=== PATIENT | female | born 1975 | race Caucasian/White ===

== ENCOUNTER 2016-11-21 11:49 | Inpatient (IN) | payer OTHER ==
[2016-11-20 11:42] VITALS: BMI 33.1
[2016-11-21] VITALS (21 sets, daily range): BP systolic 100–128; BP diastolic 44–71; PULSE 60–82; RESP 11–19; Ht 165.1 cm; Wt 98.7 kg
[~2016-11-21] VITALS: Ht 165.1 cm; Wt 98.7 kg
[~2016-11-21 11:49] MED LIST: LIDOCAINE 2% (SDV) 5 ML INJ ONE
[2016-11-21] MEDS ORDERED: CIPR500T4 PO (12:32)
[2016-11-21] MEDS ORDERED: REMI IV (12:32)
[2016-11-21] MEDS ORDERED: LYRI100 PO (12:33)
[2016-11-21] MEDS ORDERED: HYDR8TAB25 PO (12:35)
[2016-11-21] MEDS ORDERED: FENTAnyl 50 MCG/ML VIAL ONE (17:01)
[2016-11-21] MEDS ORDERED: MIDAZOLAM 1 MG/ML 2 ML INJ ONE ×2 (17:01→17:30)
[2016-11-21] MEDS ORDERED: ROPIVACAINE 0.5 % 30 ML VIAL ONE (17:02)
--- NOTE | 2016-11-21 17:10 | HPN ---
Date/Time of Note Date/Time of Note DATE: 11/21/16 TIME: 17:09 Interval H&P Admission Note Pt. seen H&P reviewed: No system changes DARLIN SCHAFER MD Nov 21, 2016 17:10
[2016-11-21] MEDS ORDERED: DEXAMETHASONE 4 MG/ML 1 ML INJ ONE (17:41)
[2016-11-21] MEDS ORDERED: HEPARIN 1000 UNITS/ML 10 ML INJ ONE (17:45)
[2016-11-21] MEDS ORDERED: POLYMYXIN/BACITRACIN 1L IRRIG ONE (17:47)
[2016-11-21] MEDS ORDERED: LIDOCAINE 2% (SDV) 5 ML INJ ONE (18:08)
[2016-11-21] MEDS ORDERED: SUCCINYLCHOLINE CHLORIDE 100 MG/5 ML SYG IV ONE (18:08)
[2016-11-21] MEDS ORDERED: SUGAMMADEX SODIUM 200 MG/2 ML VIAL IV ONE (18:08)
[2016-11-21] MEDS ORDERED: PROPOFOL 40 ML ONE (18:08)
[2016-11-21] MEDS ORDERED: ROCURONIUM 50 MG INJ ONE (18:08)
[2016-11-21] MEDS ORDERED: CEFAZOLIN 1 GM INJ ONE (18:08)
[2016-11-21] MEDS ORDERED: BUPIVACAINE 0.5% (SDV) 30 ML INJ ONE (18:14)
[2016-11-21] MEDS ORDERED: THROMBIN(HUM PLAS)/FIBRINOG/CA 5 ML VIAL TOP ONE (18:38)
[2016-11-21] MEDS ORDERED: BACITRACIN/POLYMYXIN 0.9 GM OINT TOP ONE (22:21)
[2016-11-21] MEDS ORDERED: ACETAMINOPHEN 1000MG/100ML IV 100 ML ONE (22:33)
[2016-11-21] MEDS ORDERED: HYDROmorphONE (0.2 MG/ML) 10ML SYG IV ONE (22:38)
--- NOTE | 2016-11-21 22:53 | OPR ---
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 Left ankle extensive synovitis Operation/Procedure Performed Left ankle Brostrom-Banuelos lateral ankle ligament reconstruction Left ankle arthroscopy with extensive debridement Left ankle arthroscopy with microfracture of medial talar dome OCD (10 x 4 x 4mm ) Left ankle arthroscopy with application of allograft mixed with Bone marrow aspirate concentrate Aspiration of bone marrow from left iliac crest Surgeon Iftikhar Schafer MD Production Stage Manager none Anesthesia Type: general, other (popliteal and adductor block) Anesthesiologist: RUI TELLO Tourniquet Time: 90 min at 250 mm Hg Estimated Blood Loss: minimal Transfusion none Specimen none Grafts/Implants Arthrex Biocartilage mixed with BMAC Arthrex Internal Brace Tubes/Drains none Complications none Pt Condition Post Procedure: stable Disposition: PACU Indications Patient is a 41-year-old female who sustained multiple ankle sprains over the past several years with increasing ankle instability. Patient also has had ongoing pain over the medial aspect of the ankle that was confirmed on both CT and MRI to be a large osteochondral lesion of the medial talar dome. Patient has failed physical therapy and anti-inflammatory usage. Given her failure of nonoperative modalities patient was indicated for surgical repair and reconstruction of the lateral ankle ligament complex as well as treatment of her osteochondral lesion of the medial talar dome. Risk Note: Patient was explained the risks and benefits of surgery and the patient's hoh language including not limited to infection, bleeding, injury to blood vessels, nerves, ligaments or tendons. Risks of anesthesia, deep vein thrombosis and need for reduce future surgery. Patient acknowledged these risk by signing the surgical consent form. Procedure Description The patient had the correct operative site marked in the preoperative holding area and confirmed with both patient and patient's consent. The patient was brought back in the operative theater, placed supine on the operating table and given regional block anesthesia. The patient was then given 2 g of Ancef preoperatively. Tourniquet placed on the operative extremity thigh non-sterilely. Patient was then given preoperative antibiotics. Initially the patient was prepped and draped over the right iliac crest. A timeout was taken and all parties in the room agreed it was direct patient, extremity and procedure. And using a Jamshidi needle the needle was placed into the right iliac crest just proximal to the anterior superior iliac spine and then the bone marrow aspirate was given to approximately 60 cc of bone marrow aspirate was withdrawn. The back table and it was sent to be spun in the centrifuge to get bone marrow aspirate concentrate. An incision was made from several centimeters above the fibula and carried inferior to the sinus Tarsi. This was carried down through the subcutaneous tissues and a 3-0 undyed Vicryl was used to retract the skin. Care was taken at all times to avoid injury to neurovascular structures. The extensor retinaculum was freed up, identified the peroneal tendons. The peroneal tendons and tendon sheath appeared intact. There was a noticeable tear in the superior aspect of the anterior talofibular ligament. A clamp was placed into this interval underneath the anterior talofibular ligament. Using electrosurgery cautery, the anterior talofibular was released. This left a cuff of tissue on the fibula. The calcaneofibular ligament was left intact. There is a significant anterior drawer, with the ligament released. Lateral gutter was again examined and all frayed areas were clearly debrided. the wounds were irrigated with antibiotic solution. An Internal brace was placed in the talus first in typical fashion.. Then a 2-0 PDS was placed in a pants over vest fashion to reattach to the ligament while retracting the peroneal tendons. Then a #2 FiberWire was placed in a pants over vest fashion to reattach remaining portion of the anterior talofibular ligament from posterior to anterior. Final stitch anteriorly along the anterior aspect of the lateral gutter and capsule closed with a 2-0 PDS in a pants over vest fashion. A posterior drawer was applied to the ankle and a blanket was rolled up underneath the tibia to allow gravity to reduce the ankle in neutral, dorsiflexion. The sutures were then subsequently tied in sequential fashion from posterior to anterior. The fibular aspect of the internal brace was placed in typical fashion approximately 1.2 cm from the tip of the fibula. An anterior drawer was eliminated and ankle have normal range of motion. The wounds were then irrigated again with antibiotic solution and the retinaculum was reefed and advanced proximally over vest fashion with 3-0 PDS. Wounds were irrigated thoroughly and closed with 3-0 Monocryl followed by a 4-0 Monocryl. And dressed with Steri-Strips. Excellent stability was obtained. Draping was then removed and patient was then reprepped and draped for the second part of this case. All gowns and gloves and instruments were new. The Left thigh was secured onto the thigh javed, flexed and all areas were carefully padded. The superficial peroneal nerve branch was marked out. The ankle was then prepped and draped in normal sterile fashion. A timeout was taken and all parties in the room agreed it was the correct patient, correct extremity and correct procedure. A soft tissue distraction strap was applied across the ankle and a soft tissue dissection was then placed across the ankle at approximately 30 pounds of force. Attention was then turned to the ankle joint and using a typical anterior medial , anterolateral and posterior lateral portal with care to avoid injury to the neurovascular structures. A 21 point ankle exam was completed revealing significant anterior lateral synovitis with lateral and medial gutter synovitis and scar tissue formation. There was a hemorrhagic nodule seen in the lateral gutter as well as evidence of anterior tibial osteophyte overhang. The significant amount of scar tissue was thoroughly debrided in the ankle. The distal tibial anterior overhang was excised and smoothed down with a shaver. A large medial talar osteochondral lesion was found along the medial talar dome measuring approximately 10 x 4 x 4 mm in depth. The OCD lesion was thoroughly debrided, as well as the cystic lesion was well curetted out to remove the cystic membrane. Once the membrane was thoroughly debrided. The lesion site was microfractured and drill with a trocar tip K wire and microfracture pick. Once the ankle and osteochondral lesion were dry the lesion was covered with fibrin glue. Once the fibrin glue had dried, the Arthrex biocartilage that had been mixed with bone marrow aspirate concentrate was then delivered to the osteochondral lesion site and again covered with fibrin glue. The osteochondral lesion site was firmly tamped down to form a nice talar shoulder. The ankle wounds were then thoroughly irrigated with saline. All wounds were closed with 4-0 nylon in vertical mattress fashion. Bone Marrow Aspirate concentrate using the Arthrex Franklyn system was then injected into the ankle. At the end of the procedure, the sponge and needle count was correct. Patient had the wounds then dressed with Xeroform, sponges, which were soaked in platelet poor plasma and then placed in a well-padded short leg splint with 5 ABDs 5 web rolls and 10 layers of 5 x 30 plaster in a posterior molded fashion as well as a stirrup fashion and the patient was placed into a short leg splint in neutral position. The patient tolerated the procedure well and was taken to the PACU in a stable condition. IFTIKHAR SCHAFER MD Nov 21, 2016 22:53
--- NOTE | 2016-11-21 22:53 | SIPON ---
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 Left ankle extensive synovitis Operation/Procedure Performed Left ankle Brostrom-Banuelos lateral ankle ligament reconstruction Left ankle arthroscopy with extensive debridement Left ankle arthroscopy with microfracture of medial talar dome OCD (10 x 3 x 5 mm) Left ankle arthroscopy with application of allograft mixed with Bone marrow aspirate concentrate Aspiration of bone marrow from left iliac crest Surgeon see signature line assistant infant teacher none Anesthesia: general, other (popliteal) Estimated blood loss: minimal Transfusion Required none Specimen none Grafts/Implants Arthrex Biocartilage mixed with BMAC Arthrex Internal Brace TT: 90 min at 250 mm Hg Complications none DARLIN SCHAFER MD Nov 21, 2016 22:53
[2016-11-21] MEDS ORDERED: ACETAMINOPHEN 1000MG/100ML IV 100 ML IVPB ONE (23:00)
[2016-11-21] MEDS ORDERED: OXYCODONE/ACETAMINOPHEN (5/325) TAB PO PRN (23:00)
[2016-11-21] MEDS ORDERED: MEPERIDINE 25 MG INJ IV PRN (23:00)
[2016-11-21] MEDS ORDERED: ONDANSETRON 4 MG INJ IV PRN ×2 (23:00)
[2016-11-21] MEDS ORDERED: HYDROmorphONE (0.2 MG/ML) 10ML SYG IV PRN ×3 (23:00)
[2016-11-21] MEDS ORDERED: CEFAZOLIN 1 GM INJ IV SCH (23:00)
[2016-11-21] MEDS ORDERED: FENTAnyl 50 MCG/ML VIAL IV PRN ×3 (23:00)
[2016-11-21] MEDS ORDERED: DIPHENHYDRAMINE 50 MG INJ IV PRN (23:00)
[2016-11-21] MEDS ORDERED: METOCLOPRAMIDE 10 MG INJ IV PRN (23:00)
[2016-11-21] MEDS ORDERED: PREGABALIN 100 MG CAP PO SCH (23:00)
[2016-11-21] MEDS ORDERED: DIPHENHYDRAMINE 25 MG CAP PO PRN (23:00)
[2016-11-21] MEDS ORDERED: ALBUTEROL 0.083% (NEB) 2.5 MG/3 ML AMP HHN PRN (23:00)
[2016-11-21] MEDS: HYDROmorphONE 0.2 MG/ML PCA IV SCH (23:05)
[2016-11-22] VITALS (13 sets, daily range): BP systolic 98–120; BP diastolic 52–64; PULSE 54–75; RESP 18–22
[2016-11-22] MEDS: HYDROmorphONE 1 MG/ML SYG IV PRN ×8 (00:14→14:50)
[2016-11-22] MEDS: PREGABALIN 75 MG CAP PO SCH ×3 (01:08→20:51)
[2016-11-22] MEDS: CEFAZOLIN 1 GM/50 ML (PMX) 50 ML IVPB SCH ×3 (02:53→17:55)
--- NOTE | 2016-11-22 06:19 | CONS ---
Date/Time of Note Date/Time of Note DATE: 11/22/16 TIME: 05:59 Assessment/Plan Assessment/Plan Additional Assessment/Plan ASSESSMENT 41-year-old female with a history of Crohn's disease and chronic left ankle and instability was now status post left ankle surgery. PLAN Continue pain management Check a.m. lab will continue her infliximab, as this seems to be no increased risk of infection if this immunomodulator is continued postoperatively. DVT prophylaxis per Ortho Consultation Date/Type/Reason Admit Date/Time Nov 21, 2016 at 22:51 Reason for Consultation medical mgmt Referring Provider: DARLIN SCHAFER MD Hx of Present Illness This is a 41-year-old female with a history of Crohn's disease and chronic lateral ankle instability, 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 She was brought to the hospital for orthopedic surgery. She is now status post Left lateral ankle ligament reconstruction and arthroscopy with extensive debridement (see operative report for more info). Consult was placed for medical management. Patient has been placed on a FARMWORKER GRAIN pump and pain seems to be adequately controlled. She denied chest pain, shortness of breath, fever, chills, nausea or vomiting. Social History Smoking Status: Never smoker Exam/Review of Systems Vital Signs Vitals Vital Signs Date Time Temp Pulse Resp B/P Pulse Ox O2 Delivery O2 Flow Rate FiO2 11/22/16 00:05 Nasal Cannula 2.0 11/21/16 23:49 60 12 110/59 99 11/21/16 22:51 98.8 Intake and Output 11/21/16 11/21/16 11/22/16 15:00 23:00 07:00 Intake Total 2000 ml 150 ml Output Total 400 ml Balance 1600 ml 150 ml Exam Constitutional: alert, oriented, well developed Head: atraumatic, normocephalic Eyes: EOMI, PERRL Respiratory: clear to auscultation, normal air movement Cardiovascular: nl pulses, regular rate and rhythm Gastrointestinal: non-tender, soft Extremities: other (Left lower extremity/ankle is covered) Medications Medications Current Medications Ondansetron HCl (Zofran Inj) 4 mg Q4H PRN IV NAUSEA AND/OR VOMITING; Start 01/26 at 23:00 Diphenhydramine HCl (Benadryl) 25 mg Q4H PRN PO ITCHING; Start 11/21/16 at 23: 00 Hydromorphone HCl (Dilaudid FARMWORKER GRAIN) 0 MG/HR CONTINUOUS RATE ... Q4PCA IV Last administered on 11/21/16 23:05; Admin Dose 6 MG; Start 11/21/16 at 23:00 Hydromorphone HCl 1 mg 1 mg Q2 PRN IV PAIN Last administered on 11/22/16 04: 46; Admin Dose 1 MG; Start 11/21/16 at 23:30 Cefazolin Sodium (Ancef 1 Gm/50 ml (Pmx)) 50 ml @ 100 mls/hr Q8H IVPB Last administered on 11/22/16 02:53; Admin Dose 100 MLS/HR; Start 11/22/16 at 02: 00; Stop 11/22/16 at 18:29 Pregabalin (Lyrica) 150 mg BID PO Last administered on 11/22/16 01:08; Admin Dose 150 MG; Start 11/22/16 at 01:00 RON RAZO MD Nov 22, 2016 06:09
[2016-11-22 07:48] LABS: BASOPHILS % 0.1 % (0.0-2.0); HEMATOCRIT 37.5 % (37.0-47.0); HEMOGLOBIN 11.7 g/dl (12.0-16.0); LYMPHOCYTES # 1.9 10^3/ul (0.8-2.9); LYMPHOCYTES % 14.5 % (15.0-51.0); MEAN CORPUSCULAR HEMOGLOBIN 26.1 pg (29.0-33.0); MEAN CORPUSCULAR HGB CONC 31.2 g/dl (32.0-37.0); MEAN CORPUSCULAR VOLUME 83.5 fl (82.0-101.0); MEAN PLATELET VOLUME 9.7 fl (7.4-10.4); MONOCYTE # 0.4 10^3/ul (0.3-0.9); MONOCYTES % 3.3 % (0.0-11.0); NEUTROPHIL # 10.5 10^3/ul (1.6-7.5); NEUTROPHILS % 81.7 % (39.0-77.0); PLATELET COUNT 385 10^3/UL (140-415); RED BLOOD COUNT 4.49 10^6/ul (4.20-5.40); RED CELL DISTRIBUTION WIDTH 14.3 % (11.5-14.5); WHITE BLOOD COUNT 12.8 10^3/ul (4.8-10.8)
[2016-11-22 08:23] LABS: ALBUMIN 3.7 g/dl (3.3-4.9); ALBUMIN/GLOBULIN RATIO 1.15; BILIRUBIN,INDIRECT 0.3 mg/dl (0-1.1); BILIRUBIN,TOTAL 0.3 mg/dl (0.2-1.3); CALCIUM 8.6 mg/dl (8.4-10.2); CREATININE 0.72 mg/dl (0.44-1.00); POTASSIUM 4.4 mmol/L (3.5-5.1); TOTAL PROTEIN 6.9 g/dl (6.1-8.1)
[2016-11-22] MEDS ORDERED: INFLIXIMAB 100 MG IV SCH (09:00)
[2016-11-22] MEDS ORDERED: PREGABALIN 75 MG CAP PO SCH (09:00)
[2016-11-22] MEDS ORDERED: DIPHENHYDRAMINE 50 MG INJ IV SCH ×2 (15:00)
[2016-11-22] MEDS: HYDROmorphONE 0.2 MG/ML PCA IV SCH ×2 (15:20→20:54)
--- NOTE | 2016-11-22 15:29 | CONS ---
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 I was asked to participate in pain control. Patient describes all of her pain left lower extremity, she has a documented history of Crohn's disease and does not complaining of any abdominal discomfort pain is been under good control since she has been treated with monoclonal antibodies. Describes her pain as throbbing alternating with peaks and trough excruciating and has persisted since postop day 1. Pain does not radiate not associated with nausea vomiting itching mental clouding waiting fatigue or drowsiness. Patient has been on Finacea Dilaudid and Telford for approximately 1 year prior to this admission. Her dose is alternated between 12 mg 4 times a day of Dilaudid to 8 mg 4 times a day alternating with 10 mg 4 times a day of Telford. Calculated dose given is over 100 mg of morphine equivalent per day. This was given to her by her primary care pain management physician. According to patient she has never been started on long acting opioids, she states that morphine does nothing for alleviation of her pain. Since admission she is requesting higher doses and only Dilaudid. She is not using pain medications and response to situational stressors or anxiety other than surgery. Is no past medical history of street drug use smoking or alcohol. She has never been in a alcohol or drug treatment program. She rates her pain of 10/10 without alleviation of her discomfort with IN CLASS SPECIAL EDUCATION TEACHER pain is interfering with her sleeping pattern and overall individual sense of improvement. Social History Smoking Status: Never smoker Exam/Review of Systems Vital Signs Vitals Vital Signs Date Time Temp Pulse Resp B/P Pulse Ox O2 Delivery O2 Flow Rate FiO2 11/22/16 08:00 98.7 66 18 106/57 95 11/22/16 05:00 Nasal Cannula 11/22/16 00:05 2.0 Intake and Output 11/21/16 11/21/16 11/22/16 15:00 23:00 07:00 Intake Total 2000 ml 390 ml Output Total 400 ml 700 ml Balance 1600 ml -310 ml Exam Constitutional: distress Psych: nl mood/affect, no complaints Eyes: No EOMI, No PERRL, No fundi, disc, No icteric, No nl conjunctiva, No nl lids, No nl sclera, No other ENMT: nl external ears & nose, nl lips & teeth, nl nasal mucosa & septum Neck: non-tender, supple Respiratory: clear to auscultation, normal air movement Cardiovascular: nl pulses, regular rate and rhythm Neurological: MANAGER DATABASE II-XII intact, nl mental status, nl speech, nl strength Results Result Diagram: 11/22/1672311/22/16723 Results 24 hrs Laboratory Tests Test 11/22/16 07:24 White Blood Count 12.8 H Red Blood Count 4.49 Hemoglobin 11.7 L Hematocrit 37.5 Mean Corpuscular Volume 83.5 Mean Corpuscular Hemoglobin 26.1 L Mean Corpuscular Hemoglobin Concent 31.2 L Red Cell Distribution Width 14.3 Platelet Count 385 Mean Platelet Volume 9.7 Neutrophils % 81.7 H Lymphocytes % 14.5 L Monocytes % 3.3 Eosinophils % 0.0 Basophils % 0.1 Nucleated Red Blood Cells % 0.0 Neutrophils # 10.5 H Lymphocytes # 1.9 Monocytes # 0.4 Eosinophils # 0.0 Basophils # 0.0 Nucleated Red Blood Cells # 0.0 Sodium Level 142 Potassium Level 4.4 Chloride Level 108 Carbon Dioxide Level 25 Anion Gap 13 Blood Urea Nitrogen 10 Creatinine 0.72 Glucose Level 128 Calcium Level 8.6 Total Bilirubin 0.3 Direct Bilirubin 0.00 Indirect Bilirubin 0.3 Aspartate Amino Transf (AST/SGOT) 24 Alanine Aminotransferase (ALT/SGPT) 39 Alkaline Phosphatase 53 Total Protein 6.9 Albumin 3.7 Globulin 3.20 Albumin/Globulin Ratio 1.15 Medications Medications Current Medications Ondansetron HCl (Zofran Inj) 4 mg Q4H PRN IV NAUSEA AND/OR VOMITING; Start 01/26 at 23:00 Hydromorphone HCl 1MG/HR CONTINUOUS RATE ... Q4PCA IV Last administered on 23:05; Admin Dose 6 MG; Start 11/21/16 at 23:00 Cefazolin Sodium (Ancef 1 Gm/50 ml (Pmx)) 50 ml @ 100 mls/hr Q8H IVPB Last administered on 11/22/16 10:18; Admin Dose 100 MLS/HR; Start 11/22/16 at 02: 00; Stop 11/22/16 at 18:29 Pregabalin (Lyrica) 150 mg BID PO Last administered on 11/22/16 09:06; Admin Dose 150 MG; Start 11/22/16 at 01:00 Diphenhydramine HCl (Benadryl) 25 mg Q6 IV ; Start 11/22/16 at 15:00 JANE GARCIA Nov 22, 2016 15:29
[2016-11-22] MEDS ORDERED: MAGNESIUM SULFATE 1 GM/D5W 100 ML IVPB ONE (16:00)
--- NOTE | 2016-11-22 16:09 | RADRPT ---
Vent Rate: 76 bpm RR Interval: 0 msec PA Interval: 154 msec QRS Duration: 86 msec QT Interval: 394 msec QTC Interval: 443 msec P-R-T [place]: 33 - 64 - 30 degrees Normal sinus rhythm Normal ECG Electronically Signed By: Charlie Latif [id number]
--- NOTE | 2016-11-22 17:45 | PN ---
Date/Time of Note Date/Time of Note DATE: 11/22/16 TIME: 17:45 Assessment/Plan Lines/Catheters IV Catheter Type (from Nrsg): Peripheral IV Assessment/Plan Assessment/Plan POD#1 s/p Left ankle Brostrom-Banuelos lateral ankle ligament reconstruction Left ankle arthroscopy with extensive debridement Left ankle arthroscopy with microfracture of medial talar dome OCD (10 x 3 x 5 mm) Left ankle arthroscopy with application of allograft mixed with Bone marrow aspirate concentrate Aspiration of bone marrow from left iliac crest - NWB to the LLE - Pain control per pain mgmt consulted. Recs appreciated - SCDS, taurus - Reg Diet - PT to GT --- Jacqueline SCHAFER MD Subjective 24 Hr Interval Summary Pain is severe Exam/Review of Systems Vital Signs Vitals Vital Signs Date Time Temp Pulse Resp B/P Pulse Ox O2 Delivery O2 Flow Rate FiO2 11/25/16 08:00 98.2 72 18 119/66 95 11/25/16 07:45 Nasal Cannula 2.0 Intake and Output 11/24/16 11/24/16 11/25/16 15:00 23:00 07:00 Intake Total 1200 ml 360 ml Output Total 1700 ml 800 ml Balance -500 ml -440 ml Exam Constitutional: alert, oriented, well developed Musculoskeletal: other (LLE/ Splint intact, toes wiggle, silt to the m/l/d/p/ fdws, cr brisk) Results Result Diagram: 11/24/16 0434 11/24/16 0434 DARLIN SCHAFER MD Nov 22, 2016 17:45
[2016-11-22] MEDS: DIPHENHYDRAMINE 50 MG INJ IV SCH (17:55)
[2016-11-22] MEDS: NITROGLYCERIN 0.1 MG/HR PATCH TRANSDERM SCH (17:56)
[2016-11-22] MEDS: METHADONE (1 MG/1 ML PO SYG) PO SCH ×3 (18:20→20:54)
[2016-11-23] VITALS (13 sets, daily range): BP systolic 105–117; BP diastolic 48–58; PULSE 46–79; RESP 18–20
[2016-11-23] MEDS: METHADONE (1 MG/1 ML PO SYG) PO SCH ×4 (00:24→12:03)
[2016-11-23] MEDS: DIPHENHYDRAMINE 50 MG INJ IV SCH ×3 (00:24→11:48)
[2016-11-23] MEDS: HYDROmorphONE 0.2 MG/ML PCA IV SCH ×5 (02:00→19:35)
[2016-11-23] MEDS: PREGABALIN 75 MG CAP PO SCH ×2 (08:28→20:19)
[2016-11-23] MEDS: NITROGLYCERIN 0.1 MG/HR PATCH TRANSDERM SCH (08:35)
--- NOTE | 2016-11-23 08:41 | PN ---
Date/Time of Note Date/Time of Note DATE: 11/23/16 TIME: 08:41 Assessment/Plan Lines/Catheters IV Catheter Type (from Nrsg): Peripheral IV Assessment/Plan Assessment/Plan POD#2 s/p Left ankle Brostrom-Banuelos lateral ankle ligament reconstruction Left ankle arthroscopy with extensive debridement Left ankle arthroscopy with microfracture of medial talar dome OCD (10 x 3 x 5 mm) Left ankle arthroscopy with application of allograft mixed with Bone marrow aspirate concentrate Aspiration of bone marrow from left iliac crest - NWB to the LLE - Pain control per pain mgmt - patient on tele for REGIONAL PLANNER 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 - PT to GT --- E GILMAR NOLAND Subjective 24 Hr Interval Summary Patient in significant amount of pain still Exam/Review of Systems Vital Signs Vitals Vital Signs Date Time Temp Pulse Resp B/P Pulse Ox O2 Delivery O2 Flow Rate FiO2 11/25/16 08:00 98.2 72 18 119/66 95 11/25/16 07:45 Nasal Cannula 2.0 Intake and Output 11/24/16 11/24/16 11/25/16 15:00 23:00 07:00 Intake Total 1200 ml 360 ml Output Total 1700 ml 800 ml Balance -500 ml -440 ml Exam Constitutional: alert, oriented, well developed Musculoskeletal: other (LLE/ Splint intact, toes wiggle, silt to the m/l/d/p/ fdws, cr brisk) Results Result Diagram: 11/24/16 0434 11/24/16 0434 DARLIN SCHAFER MD Nov 23, 2016 08:41
--- NOTE | 2016-11-23 13:58 | PN ---
Date/Time of Note Date/Time of Note DATE: 11/23/16 TIME: 13:54 Assessment/Plan VTE Prophylaxis VTE Prophylaxis Intervention: SCD's Lines/Catheters IV Catheter Type (from Nrsg): Peripheral IV Urinary Cath still in place: No Assessment/Plan Chief Complaint/Hosp Course This is a 41-year-old female with a history of Crohn's disease and chronic lateral ankle instability, 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 She was brought to the hospital for orthopedic surgery. She is now status post Left lateral ankle ligament reconstruction and arthroscopy with extensive debridement (see operative report for more info). Assessment and plan Left ankle dysfunction status post ligament reconstruction, extensive debridement, microfracture repair, allograft, bone marrow aspiration next line opiate dependence Left ankle pain Chronic debility secondary to ankle pain Leukocytosis, mild -Orthopedic surgeon has consulted for medical management, Dr. Franklin, consulted for pain management as patient is on very high doses of pain meds. Will attempt to cut down -Monitor on telemetry secondary to patient's high dose of pain medication -Orthopedic surgery and to dispel when ready -Monitor and manage medically Problems: Subjective 24 Hr Interval Summary Free Text/Dictation no acute issues Exam/Review of Systems Vital Signs Vitals Vital Signs Date Time Temp Pulse Resp B/P Pulse Ox O2 Delivery O2 Flow Rate FiO2 11/23/16 12:00 68 11/23/16 11:41 97.3 19 105/55 95 11/23/16 07:30 Nasal Cannula 2.0 Intake and Output 11/22/16 11/22/16 11/23/16 15:00 23:00 07:00 Intake Total 50 ml 100 ml Balance 50 ml 100 ml Exam Physical exam General: Patient is laying in bed and answers questions appropriately Mentation: Patient is alert and oriented 4, Head: Normocephalic atraumatic Eyes: EOMI, pupils reactive to light Neck: Supple, nontender, midline Respiratory: Clear to auscultation bilaterally Cardiovascular: regular rate, no obvious murmurs Gastrointestinal: non-tender to palpation, bowel sounds heard. Neurological: Moves all extremities spontaneously, except L LE as it has mechanical restriction 2/2 surgery Skin: No new skin lesions Results Result Diagram: 11/22/16 0724 11/22/16 0724 Results 24 hrs Laboratory Tests Test 11/23/16 06:27 Lab Scanned Report LAB Medications Medications Current Medications Ondansetron HCl (Zofran Inj) 4 mg Q4H PRN IV NAUSEA AND/OR VOMITING; Start 01/26 at 23:00 Hydromorphone HCl (Dilaudid LOBSTER MAN) 1MG/HR CONTINUOUS RATE ... Q4PCA IV Last administered on 11/23/16 11:16; Admin Dose 6 MG; Start 11/21/16 at 23:00 Pregabalin (Lyrica) 150 mg BID PO Last administered on 11/23/16 08:28; Admin Dose 150 MG; Start 11/22/16 at 01:00 Methadone HCl (Methadone Liq (Ped)) 1 mg Q4 PO Last administered on 11/23/16 00:24; Admin Dose 1 MG; Start 11/22/16 at 17:00 Nitroglycerin (Nitroglycerin 0.1 Mg/Hr) 1 patch DAILY TRANSDERM Last administered on 11/23/16 08:35; Admin Dose 1 PATCH; Start 11/22/16 at 15:00 Diphenhydramine HCl (Benadryl) 15 mg Q6 IV Last administered on 11/23/16 11: 48; Admin Dose 15 MG; Start 11/22/16 at 18:00 VIV AGUILAR Nov 23, 2016 13:58
--- NOTE | 2016-11-23 14:04 | CONS ---
Date/Time of Note Date/Time of Note DATE: 11/23/16 TIME: 14:00 Assessment/Plan Assessment/Plan Chief Complaint/Hosp Course This is a 41-year-old female who underwent an extensive surgical procedure patient's left lower extremity, this is postop day 1. I was asked to participate in pain control. Patient describes all of her pain left lower extremity, she has a documented history of Crohn's disease and does not complaining of any abdominal discomfort pain is been under good control since she has been treated with monoclonal antibodies. Describes her pain as throbbing alternating with peaks and trough excruciating and has persisted since postop day 1. Pain does not radiate not associated with nausea vomiting itching mental clouding waiting fatigue or drowsiness. Patient has been on Finacea Dilaudid and [place] for approximately 1 year prior to this admission. Her dose is alternated between 12 mg 4 times a day of Dilaudid to 8 mg 4 times a day alternating with 10 mg 4 times a day of [place]. Calculated dose given is over 100 mg of morphine equivalent per day. This was given to her by her primary care pain management physician. According to patient she has never been started on long acting opioids, she states that morphine does nothing for alleviation of her pain. Since admission she is requesting higher doses and only Dilaudid. She is not using pain medications and response to situational stressors or anxiety other than surgery. Is no past medical history of street drug use smoking or alcohol. She has never been in a alcohol or drug treatment program. 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 Problems: Additional Assessment/Plan Improved today denies n,v,dizziness, excess sleepiness refused the methadone last night begin to taper down opioids today. Consultation Date/Type/Reason Admit Date/Time Nov 21, 2016 at 22:51 Initial Consult Date Type of Consultation: Pain Management Referring Provider: DARLIN SCHAFER MD Exam/Review of Systems Vital Signs Vitals Vital Signs Date Time Temp Pulse Resp B/P Pulse Ox O2 Delivery O2 Flow Rate FiO2 11/23/16 12:00 68 11/23/16 11:41 97.3 19 105/55 95 11/23/16 07:30 Nasal Cannula 2.0 Intake and Output 11/22/16 11/22/16 11/23/16 15:00 23:00 07:00 Intake Total 50 ml 100 ml Balance 50 ml 100 ml Exam Constitutional: alert, oriented, well developed, No distress, No frail, No non-verbal, No obese, No other Neurological: REAL ESTATE BROKER II-XII intact, nl mental status, nl speech, nl strength, No DTR's symmetric, No confused, No focal weakness, No lethargic, No numbness , No other, No reflexes, No unresponsive Results Result Diagram: 11/22/16 0724 11/22/16 0724 Results 24 hrs Laboratory Tests Test 11/23/16 06:27 Lab Scanned Report LAB Medications Medications Current Medications Ondansetron HCl (Zofran Inj) 4 mg Q4H PRN IV NAUSEA AND/OR VOMITING; Start 01/26 at 23:00 Hydromorphone HCl (Dilaudid DEPOT MANAGER) 1MG/HR CONTINUOUS RATE ... Q4PCA IV Last administered on 11/23/16 11:16; Admin Dose 6 MG; Start 11/21/16 at 23:00 Pregabalin (Lyrica) 150 mg BID PO Last administered on 11/23/16 08:28; Admin Dose 150 MG; Start 11/22/16 at 01:00 Methadone HCl (Methadone Liq (Ped)) 1 mg Q4 PO Last administered on 11/23/16 00:24; Admin Dose 1 MG; Start 11/22/16 at 17:00 Nitroglycerin (Nitroglycerin 0.1 Mg/Hr) 1 patch DAILY TRANSDERM Last administered on 11/23/16 08:35; Admin Dose 1 PATCH; Start 11/22/16 at 15:00 Diphenhydramine HCl (Benadryl) 15 mg Q6 IV Last administered on 11/23/16 11: 48; Admin Dose 15 MG; Start 11/22/16 at 18:00 JANE GARCIA Nov 23, 2016 14:04
[2016-11-23] MEDS ORDERED: DIPHENHYDRAMINE 50 MG INJ IV PRN (16:00)
[2016-11-23] MEDS: DIPHENHYDRAMINE 50 MG INJ IV PRN (18:37)
[2016-11-24] MEDS: HYDROmorphONE 0.2 MG/ML PCA IV SCH ×3 (00:06→09:29)
[2016-11-24] MEDS: DIPHENHYDRAMINE 50 MG INJ IV PRN ×2 (00:36→06:50)
[2016-11-24 01:50] VITALS: BP 110/61; RESP 18
[2016-11-24 06:01] LABS: ABNORMAL IP MESSAGE 1; BASOPHILS % 0.3 % (0.0-2.0); EOSINOPHILS # 0.5 10^3/ul (0.0-0.5); EOSINOPHILS % 4.4 % (0.0-7.0); HEMATOCRIT 35.3 % (37.0-47.0); HEMOGLOBIN 11.1 g/dl (12.0-16.0); LYMPHOCYTES # 5.2 10^3/ul (0.8-2.9); LYMPHOCYTES % 46.8 % (15.0-51.0); MEAN CORPUSCULAR HEMOGLOBIN 27.5 pg (29.0-33.0); MEAN CORPUSCULAR HGB CONC 31.4 g/dl (32.0-37.0); MEAN CORPUSCULAR VOLUME 87.6 fl (82.0-101.0); MONOCYTE # 0.7 10^3/ul (0.3-0.9); MONOCYTES % 6.2 % (0.0-11.0); NEUTROPHIL # 4.7 10^3/ul (1.6-7.5); NEUTROPHILS % 41.9 % (39.0-77.0); PLATELET COUNT 329 10^3/UL (140-415); RED BLOOD COUNT 4.03 10^6/ul (4.20-5.40); RED CELL DISTRIBUTION WIDTH 14.2 % (11.5-14.5); WHITE BLOOD COUNT 11.2 10^3/ul (4.8-10.8)
[2016-11-24 06:17] LABS: POSITIVE DIFF @See below
[2016-11-24 06:46] LABS: CALCIUM 8.3 mg/dl (8.4-10.2); CREATININE 0.69 mg/dl (0.44-1.00); MAGNESIUM 1.8 mg/dl (1.7-2.5); PHOSPHORUS 3.8 mg/dl (2.5-4.9); POTASSIUM 3.9 mmol/L (3.5-5.1)
[2016-11-24 07:49] VITALS: BP 106/55; RESP 16
[2016-11-24] MEDS: PREGABALIN 75 MG CAP PO SCH ×2 (08:24→20:38)
--- NOTE | 2016-11-24 11:34 | CONS ---
Date/Time of Note Date/Time of Note DATE: 11/24/16 TIME: 11:31 Assessment/Plan Assessment/Plan Chief Complaint/Hosp Course This is a 41-year-old female who underwent an extensive surgical procedure patient's left lower extremity, this is postop day 1. I was asked to participate in pain control. Patient describes all of her pain left lower extremity, she has a documented history of Crohn's disease and does not complaining of any abdominal discomfort pain is been under good control since she has been treated with monoclonal antibodies. Describes her pain as throbbing alternating with peaks and trough excruciating and has persisted since postop day 1. Pain does not radiate not associated with nausea vomiting itching mental clouding waiting fatigue or drowsiness. Patient has been on Finacea Dilaudid and [place] for approximately 1 year prior to this admission. Her dose is alternated between 12 mg 4 times a day of Dilaudid to 8 mg 4 times a day alternating with 10 mg 4 times a day of [place]. Calculated dose given is over 100 mg of morphine equivalent per day. This was given to her by her primary care pain management physician. According to patient she has never been started on long acting opioids, she states that morphine does nothing for alleviation of her pain. Since admission she is requesting higher doses and only Dilaudid. She is not using pain medications and response to situational stressors or anxiety other than surgery. Is no past medical history of street drug use smoking or alcohol. She has never been in a alcohol or drug treatment program. 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 Problems: Additional Assessment/Plan She states she is better today although she had physical therapy this morning and pain accelerated. I have explained to her that we need to begin her on oral pain control medications, she is in agreement with this. We will discontinue her PIT HOIST OPERATOR and start her off on oral Dilaudid 2 mg every 4 hours as needed, she is also in agreement with this regimen. Although nursing documentation is a 9/10 she denies this and that is better controlled right now and she is aware the fact that she may be discharged tomorrow. Consultation Date/Type/Reason Admit Date/Time Nov 21, 2016 at 22:51 Type of Consultation: Pain Management Referring Provider: DARLIN SCHAFER MD Exam/Review of Systems Vital Signs Vitals Vital Signs Date Time Temp Pulse Resp B/P Pulse Ox O2 Delivery O2 Flow Rate FiO2 11/24/16 09:29 18 11/24/16 09:00 Nasal Cannula 2.0 11/24/16 07:49 98.0 64 106/55 97 Intake and Output 11/23/16 11/23/16 11/24/16 15:00 23:00 07:00 Intake Total 700 ml Output Total 900 ml Balance -200 ml Exam Constitutional: alert, oriented, well developed Neurological: AIR BAG BUILDER II-XII intact, nl mental status, nl speech, nl strength, No DTR's symmetric, No confused, No focal weakness, No lethargic, No numbness , No other, No reflexes, No unresponsive Results Result Diagram: 11/24/16 0434 11/24/16 0434 Results 24 hrs Laboratory Tests Test 11/24/16 04:34 White Blood Count 11.2 H Red Blood Count 4.03 L Hemoglobin 11.1 L Hematocrit 35.3 L Mean Corpuscular Volume 87.6 Mean Corpuscular Hemoglobin 27.5 L Mean Corpuscular Hemoglobin Concent 31.4 L Red Cell Distribution Width 14.2 Platelet Count 329 Mean Platelet Volume 10.0 Neutrophils % 41.9 Lymphocytes % 46.8 Monocytes % 6.2 Eosinophils % 4.4 Basophils % 0.3 Nucleated Red Blood Cells % 0.0 Neutrophils # 4.7 Lymphocytes # 5.2 H Monocytes # 0.7 Eosinophils # 0.5 Basophils # 0.0 Nucleated Red Blood Cells # 0.0 Sodium Level 141 Potassium Level 3.9 Chloride Level 103 Carbon Dioxide Level 31 Anion Gap 11 Blood Urea Nitrogen 9 Creatinine 0.69 Glucose Level 89 Calcium Level 8.3 L Phosphorus Level 3.8 Magnesium Level 1.8 Medications Medications Current Medications Ondansetron HCl (Zofran Inj) 4 mg Q4H PRN IV NAUSEA AND/OR VOMITING; Start 01/26 at 23:00 Hydromorphone HCl (Dilaudid PIT HOIST OPERATOR) 1MG/HR CONTINUOUS RATE ... Q4PCA IV Last administered on 11/24/16 09:29; Admin Dose 6 MG; Start 11/21/16 at 23:00 Pregabalin (Lyrica) 150 mg BID PO Last administered on 11/24/16 08:24; Admin Dose 150 MG; Start 11/22/16 at 01:00 Diphenhydramine HCl (Benadryl) 15 mg Q6H PRN IV ITCHING Last administered on 06:50; Admin Dose 15 MG; Start 11/23/16 at 16:00 AJNE GARCIA Nov 24, 2016 11:34
--- NOTE | 2016-11-24 11:44 | PN ---
Date/Time of Note Date/Time of Note DATE: 11/24/16 TIME: 11:44 Assessment/Plan Lines/Catheters IV Catheter Type (from Nrsg): Peripheral IV Mills in Place (from Nrsg): No Assessment/Plan Assessment/Plan POD#3 s/p Left ankle Brostrom-Banuelos lateral ankle ligament reconstruction Left ankle arthroscopy with extensive debridement Left ankle arthroscopy with microfracture of medial talar dome OCD (10 x 3 x 5 mm) Left ankle arthroscopy with application of allograft mixed with Bone marrow aspirate concentrate Aspiration of bone marrow from left iliac crest - NWB to the LLE - Pain control per pain mgmt - patient to be dc'd home tomorrow mos likely - case mgmt consulted for hospital bed with trapezjacqueline - PT to GT --- Jacqueline SCHAFER MD Subjective 24 Hr Interval Summary Pain is moderate controlled on PO pain meds. No f/c/v/n Exam/Review of Systems Vital Signs Vitals Vital Signs Date Time Temp Pulse Resp B/P Pulse Ox O2 Delivery O2 Flow Rate FiO2 11/25/16 08:00 98.2 72 18 119/66 95 11/25/16 07:45 Nasal Cannula 2.0 Intake and Output 11/24/16 11/24/16 11/25/16 15:00 23:00 07:00 Intake Total 1200 ml 360 ml Output Total 1700 ml 800 ml Balance -500 ml -440 ml Exam Musculoskeletal: other (LLE/ Splint intact, toes wiggle, silt to the m/l/d/p/ fdws, cr brisk) Results Result Diagram: 11/24/16 0434 11/24/16 0434 DARLIN SCHAFER MD Nov 24, 2016 11:44
--- NOTE | 2016-11-24 11:50 | PN ---
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 She was brought to the hospital for orthopedic surgery. She is now status post Left lateral ankle ligament reconstruction and arthroscopy with extensive debridement (see operative report for more info). Assessment and plan Left ankle dysfunction status post ligament reconstruction, extensive debridement, microfracture repair, allograft, bone marrow aspiration next line opiate dependence Left ankle pain Chronic debility secondary to ankle pain Leukocytosis, mild -Orthopedic surgeon has consulted for medical management, Dr. Franklin, consulted for pain management as patient is on very high doses of pain meds. Will attempt to cut down -Monitor on telemetry secondary to patient's high dose of pain medication -Orthopedic surgery and to dispo when ready -Monitor and manage medically Problems: Subjective 24 Hr Interval Summary Free Text/Dictation had pain in the early AM, MIXING MACHINE OPERATOR pump was not on, now has no complaints after MIXING MACHINE OPERATOR pump working. Exam/Review of Systems Vital Signs Vitals Vital Signs Date Time Temp Pulse Resp B/P Pulse Ox O2 Delivery O2 Flow Rate FiO2 11/24/16 09:29 18 11/24/16 09:00 Nasal Cannula 2.0 11/24/16 07:49 98.0 64 106/55 97 Intake and Output 11/23/16 11/23/16 11/24/16 15:00 23:00 07:00 Intake Total 700 ml Output Total 900 ml Balance -200 ml Exam Physical exam General: Patient is laying in bed and answers questions appropriately Mentation: Patient is alert and oriented 4, Head: Normocephalic atraumatic Eyes: EOMI, pupils reactive to light Neck: Supple, nontender, midline Respiratory: Clear to auscultation bilaterally Cardiovascular: regular rate, no obvious murmurs Gastrointestinal: non-tender to palpation, bowel sounds heard. Neurological: Moves all extremities spontaneously, except L LE as it has mechanical restriction 2/2 surgery Skin: No new skin lesions Results Result Diagram: 11/24/16 0434 11/24/16433 Results 24 hrs Laboratory Tests Test 11/24/16 04:34 White Blood Count 11.2 H Red Blood Count 4.03 L Hemoglobin 11.1 L Hematocrit 35.3 L Mean Corpuscular Volume 87.6 Mean Corpuscular Hemoglobin 27.5 L Mean Corpuscular Hemoglobin Concent 31.4 L Red Cell Distribution Width 14.2 Platelet Count 329 Mean Platelet Volume 10.0 Neutrophils % 41.9 Lymphocytes % 46.8 Monocytes % 6.2 Eosinophils % 4.4 Basophils % 0.3 Nucleated Red Blood Cells % 0.0 Neutrophils # 4.7 Lymphocytes # 5.2 H Monocytes # 0.7 Eosinophils # 0.5 Basophils # 0.0 Nucleated Red Blood Cells # 0.0 Sodium Level 141 Potassium Level 3.9 Chloride Level 103 Carbon Dioxide Level 31 Anion Gap 11 Blood Urea Nitrogen 9 Creatinine 0.69 Glucose Level 89 Calcium Level 8.3 L Phosphorus Level 3.8 Magnesium Level 1.8 Medications Medications Current Medications Ondansetron HCl (Zofran Inj) 4 mg Q4H PRN IV NAUSEA AND/OR VOMITING; Start 01/26 at 23:00 Pregabalin (Lyrica) 150 mg BID PO Last administered on 11/24/16 08:24; Admin Dose 150 MG; Start 11/22/16 at 01:00 Diphenhydramine HCl (Benadryl) 15 mg Q6H PRN IV ITCHING Last administered on 06:50; Admin Dose 15 MG; Start 11/23/16 at 16:00 Hydromorphone HCl (Dilaudid) 2 mg Q4H PRN PO PAIN; Start 11/24/16 at 11:30 VIV AGUILAR Nov 24, 2016 11:49
[2016-11-24] MEDS: HYDROmorphONE 2 MG TAB PO PRN ×3 (13:02→23:33)
[2016-11-24 14:00] VITALS: BP 117/55; RESP 16
[2016-11-24] MEDS ORDERED: HYDROmorphONE 2 MG/ML SYG IV STA (15:35)
[2016-11-24 19:25] VITALS: BP 133/66; RESP 18
[2016-11-24] MEDS ORDERED: HYDROmorphONE 2 MG TAB PO PRN (21:00)
[2016-11-24] MEDS ORDERED: HYDROmorphONE 2 MG TAB ONE (23:30)
[2016-11-25] MEDS: HYDROmorphONE 2 MG TAB PO PRN ×3 (03:37→11:12)
[2016-11-25 08:00] VITALS: BP 119/66; RESP 18
[2016-11-25] MEDS: PREGABALIN 75 MG CAP PO SCH (08:30)
--- NOTE | 2016-11-25 10:27 | CONS ---
Date/Time of Note Date/Time of Note DATE: 11/25/16 TIME: 10:27 Consultation Date/Type/Reason Admit Date/Time Nov 21, 2016 at 22:51 Initial Consult Date Type of Consultation: Pain Management Referring Provider: DARLIN SCHAFER MD Exam/Review of Systems Vital Signs Vitals Vital Signs Date Time Temp Pulse Resp B/P Pulse Ox O2 Delivery O2 Flow Rate FiO2 11/25/16 08:00 98.2 72 18 119/66 95 11/25/16 07:45 Nasal Cannula 2.0 Intake and Output 11/24/16 11/24/16 11/25/16 15:00 23:00 07:00 Intake Total 1200 ml 360 ml Output Total 1700 ml 800 ml Balance -500 ml -440 ml Results Result Diagram: 11/24/16 0434 11/24/16 0434 Medications Medications Current Medications Ondansetron HCl (Zofran Inj) 4 mg Q4H PRN IV NAUSEA AND/OR VOMITING; Start 01/26 at 23:00 Pregabalin (Lyrica) 150 mg BID PO Last administered on 11/25/16 08:30; Admin Dose 150 MG; Start 11/22/16 at 01:00 Diphenhydramine HCl (Benadryl) 15 mg Q6H PRN IV ITCHING Last administered on 06:50; Admin Dose 15 MG; Start 11/23/16 at 16:00 Hydromorphone HCl (Dilaudid) 4 mg Q4 PRN PO PAIN Last administered on 07:15; Admin Dose 4 MG; Start 11/25/16 at 01:00 Guaifenesin (Mucinex) 600 mg BID PO ; Start 11/25/16 at 10:30; Status UNV Sodium Chloride (Deep Sea) 2 spray DAILY NASAL ; Start 11/25/16 at 10:30; Status UNV Polyethylene Glycol (Miralax) 17 gm DAILY PO ; Start 11/25/16 at 10:30; Status UNV Senna/Docusate Sodium (Senokot-S) 1 tab DAILY PRN PO CONSTIPATION; Start 11/25 at 10:30; Status UNV BENNIE JAMES MD Nov 25, 2016 10:27
[2016-11-25] MEDS ORDERED: SENNA/DOCUSATE NA (8.6MG/50MG) TAB PO PRN (10:30)
[2016-11-25] MEDS ORDERED: POLYETHYLENE GLYCOL 17 GM PACKET PO SCH (10:30)
[2016-11-25] MEDS ORDERED: SALINE 0.65% 45 ML NAS SPRAY NASAL SCH (10:30)
--- NOTE | 2016-11-25 11:13 | PN ---
Date/Time of Note Date/Time of Note DATE: 11/25/16 TIME: 11:13 Assessment/Plan Lines/Catheters IV Catheter Type (from Nrsg): Saline Lock Mills in Place (from Nrsg): No Assessment/Plan Assessment/Plan POD#4 s/p Left ankle Brostrom-Banuelos lateral ankle ligament reconstruction Left ankle arthroscopy with extensive debridement Left ankle arthroscopy with microfracture of medial talar dome OCD (10 x 3 x 5 mm) Left ankle arthroscopy with application of allograft mixed with Bone marrow aspirate concentrate Aspiration of bone marrow from left iliac crest - NWB to the LLE - Pain control per pain mgmt - patient to be dc'd home today - case mgmt consultre - PT to GT --- Jacqueline SCHAFER MD Subjective 24 Hr Interval Summary Pain is better controlled on PO pain meds. No f/c/v/n Exam/Review of Systems Vital Signs Vitals Vital Signs Date Time Temp Pulse Resp B/P Pulse Ox O2 Delivery O2 Flow Rate FiO2 11/25/16 08:00 98.2 72 18 119/66 95 11/25/16 07:45 Nasal Cannula 2.0 Intake and Output 11/24/16 11/24/16 11/25/16 15:00 23:00 07:00 Intake Total 1200 ml 360 ml Output Total 1700 ml 800 ml Balance -500 ml -440 ml Exam Constitutional: alert, oriented, well developed Musculoskeletal: other (LLE/ Splint intact, toes wiggle, silt to the m/l/d/p/ fdws, cr brisk) Results Result Diagram: 11/24/16 0434 11/24/16 0434 DARLIN SCHAFER MD Nov 25, 2016 11:13
[2016-11-25] MEDS ORDERED: GUAIFENESIN LA 600 MG TABSR PO SCH (11:30)
--- NOTE | 2016-11-25 11:40 | PDOCDIS ---
Discharge Instructions DIAGNOSIS Discharge Diagnosis Left ankle instability, OCD of the talus CONDITION Patient Condition: Good HOME CARE INSTRUCTIONS: Diet Instructions: Regular ACTIVITY: Activity Restrictions: Avoid heavy lifting Do not Drive Do not operate Machinery Do not operate Power Tool Avoid Heavy Housework Keep Limb Elevated No Weight Bearing Bathing Restrictions: Shower FOLLOW UP/APPOINTMENTS Follow-up Plan 1 week at [facility] [place] [facility]/WORK RELEASE May return to School/Work with: No Restrictions DARLIN SCHAFER MD Nov 25, 2016 11:40
--- NOTE | 2016-11-25 11:40 | DS ---
Date/Time of Note Date/Time of Note DATE: 11/25/16 TIME: 11:40 Discharge Summary Admission/Discharge Info Admit Date/Time Nov 21, 2016 at 22:51 Discharge Date/Time 11/25/16 Discharge Diagnosis left ankle instability with osteochondral lesion of medial talar dome Consults Pain management and internal medicine Procedures Left ankle Brostrom-Banuelos lateral ankle ligament reconstruction Left ankle arthroscopy with extensive debridement Left ankle arthroscopy with microfracture of medial talar dome OCD (10 x 4 x 4mm ) Left ankle arthroscopy with application of allograft mixed with Bone marrow aspirate concentrate Aspiration of bone marrow from left iliac crest Hospital Course This is a 41-year-old female with a history of Crohn's disease and chronic lateral ankle instability, 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 She was brought to the hospital for orthopedic surgery. She is now status post Left lateral ankle ligament reconstruction and arthroscopy with extensive debridement (see operative report for more info). Assessment and plan Left ankle dysfunction status post ligament reconstruction, extensive debridement, microfracture repair, allograft, bone marrow aspiration next line opiate dependence Left ankle pain Chronic debility secondary to ankle pain Leukocytosis, mild Patient's pain was well-controlled on day of discharge and she was neurovascularly intact to the operative extremity Home Meds Active Scripts Polyethylene Glycol* (Miralax*) 17 Gm Powd.pack, 17 GM PO DAILY for 30 Days, # 30 PACKET Prov:BENNIE JAMES MD 11/25/16 Saline (Deep Sea) 44 Ml [place], 2 SPRAY NASAL DAILY for 30 Days, #1 BOTTLE Prov:BENNIE JAMES MD 11/25/16 Guaifenesin (Guaifenesin) 600 Mg Tablet.sa, 600 MG PO BID for 7 Days, #14 TAB Prov:BENNIE JAMES MD 11/25/16 Discontinued Reported Medications Hydromorphone Hcl* (Dilaudid*) 8 Mg Tablet, 8 MG PO Q6H Y for PAIN, TAB 11/21/16 Pregabalin* (Lyrica*) 100 Mg Capsule, 100 MG PO BID, CAP 11/21/16 Ciprofloxacin Hcl* (Ciprofloxacin Hcl*) 500 Mg Tablet, 500 MG PO BID, #14 TAB 11/21/16 Infliximab (Remicade) 100 Mg Soln, 100 MG IV patient has it last 2016 and the next one will be january 01, 2017 11/21/16 Follow-up Plan With Dr. Schafer in 1 week Primary Care Provider Not On Staff Doctor Time spent on discharge: < 30 minutes DARLIN SCHAFER MD Nov 25, 2016 11:40
[2016-11-25] MEDS ORDERED: POLY17PO6 PO (12:39)
[2016-11-25] MEDS ORDERED: GUAI600T14 PO (12:39)
[2016-11-25] MEDS ORDERED: SODI44SP19 NASAL (12:39)
--- NOTE | 2016-11-25 13:12 | PN ---
Date/Time of Note Date/Time of Note DATE: 11/25/16 TIME: 13:05 Assessment/Plan VTE Prophylaxis VTE Prophylaxis Intervention: ambulation, SCD's Lines/Catheters IV Catheter Type (from Nrsg): Saline Lock Urinary Cath still in place: No Assessment/Plan Assessment/Plan 1. Left ankle dysfunction status post ligament reconstruction, extensive debridement, microfracture repair, allograft, bone marrow aspiration next line opiate dependence - Management per Ortho - pain controlled on Dilaudid 2. Constipation 2/2 opioid - Miralax PRN 3. Acute rhinitis/congestion - Mucinex PRN - Nasal Saline rinse PRN 4. Leukocytosis, mild - most likely stress response. no signs of infection - trending downward 5. Chronic debility secondary to ankle pain 6. Disposition - discharge today per Ortho Subjective 24 Hr Interval Summary Free Text/Dictation Patient states she feeling better but still experiencing pain. Also has not had a BM since last and experiencing nasal congestion. Denies any fevers, chills, nausea, vomiting, chest pain, or SOB. Exam/Review of Systems Vital Signs Vitals Vital Signs Date Time Temp Pulse Resp B/P Pulse Ox O2 Delivery O2 Flow Rate FiO2 11/25/16 08:00 98.2 72 18 119/66 95 11/25/16 07:45 Nasal Cannula 2.0 Intake and Output 11/24/16 11/24/16 11/25/16 15:00 23:00 07:00 Intake Total 1200 ml 360 ml Output Total 1700 ml 800 ml Balance -500 ml -440 ml Exam General: Patient is laying in bed and answers questions appropriately Head: Normocephalic atraumatic Eyes: EOMI, pupils reactive to light Neck: Supple, nontender Respiratory: Clear to auscultation bilaterally Cardiovascular: regular rate, no obvious murmurs Gastrointestinal: non-tender to palpation, bowel sounds heard. Ext: LLE in cast, pulses intact, no cyanosis, clubbing, edema Skin: No new skin lesions Results Result Diagram: 11/24/16 0434 11/24/16 043 Medications Medications Current Medications Ondansetron HCl (Zofran Inj) 4 mg Q4H PRN IV NAUSEA AND/OR VOMITING; Start 01/26 at 23:00 Pregabalin (Lyrica) 150 mg BID PO Last administered on 11/25/16t 08:30; Admin Dose 150 MG; Start 11/22/16 at 01:00 Diphenhydramine HCl (Benadryl) 15 mg Q6H PRN IV ITCHING Last administered on 06:50; Admin Dose 15 MG; Start 11/23/16 at 16:00 Hydromorphone HCl (Dilaudid) 4 mg Q4 PRN PO PAIN Last administered on 11:12; Admin Dose 4 MG; Start 11/25/16 at 01:00 Guaifenesin (Mucinex) 600 mg BID PO ; Start 11/25/16 at 11:30 Sodium Chloride (Deep Sea) 2 spray DAILY NASAL ; Start 11/25/16 at 10:30 Polyethylene Glycol (Miralax) 17 gm DAILY PO Last administered on 11/25/16 11 :11; Admin Dose 17 GM; Start 11/25/16 at 10:30 Senna/Docusate Sodium (Senokot-S) 1 tab DAILY PRN PO CONSTIPATION; Start 11/25 at 10:30 Hydromorphone HCl (Dilaudid) 2 mg ONCE ONCE IV ; Start 11/25/16 at 14:00; Stop 11/25/16 at 14:01 BENNIE JAMES MD Nov 25, 2016 13:12
[2016-11-25] MEDS ORDERED: HYDROmorphONE 2 MG/ML SYG IV ONE (14:00)
--- NOTE | 2016-11-27 11:27 | RADRPT ---
PROCEDURE: Intraoperative fluoroscopy CLINICAL INDICATION: Open reduction internal fixation left ankle. Pain. TECHNIQUE: 42 seconds of fluoroscopy time was utilized. 8 Images are submitted for interpretation. COMPARISON: None FINDINGS: Successful ORIF was performed of the left ankle. 42 seconds of fluoroscopy time used. Alignment is anatomic. Postsurgical changes are noted. IMPRESSION: Successful ORIF left ankle. 42 seconds of fluoroscopy time used. Anatomic alignment. Postsurgical ch anges. RPTAT: EE .Yamini Daley MD, MD Date Time Electronically viewed and signed by .Yamini Daley MD, on 11/27/2016 11:27 .F/
== END 2016-11-25 14:00 | disposition home or self-care (01) | DRG 493 ==
LOC: SDS 11:49 → REC 22:51 → SDS 22:57 → MS1 11-22 00:12 → MS4 11-22 17:25 → MS1 11-23 17:13
PROVIDERS: ADMIT Orthopaedic Surgery; ATTEND Orthopaedic Surgery
PROC: 0SBG4ZZ Excision of Left Ankle Joint, Percutaneous Endoscopic Approach (ICD-10-PCS; 2016-11-21)
PROC: 0QBM4ZZ Excision of Left Tarsal, Percutaneous Endoscopic Approach (ICD-10-PCS; 2016-11-21)
PROC: 0SU Lower Joints, Supplement (ICD-10-PCS; 2016-11-21)
PROC: 0MQR0ZZ Repair Left Ankle Bursa and Ligament, Open Approach (ICD-10-PCS; principal; 2016-11-21 15:00)
DX: M93.272 Osteochondritis dissecans, left ankle and joints of left foot (principal); K50.90 Crohn's disease, unspecified, without complications; F11.20 Opioid dependence, uncomplicated; M25.372 Other instability, left ankle; M65.872 Other synovitis and tenosynovitis, left ankle and foot; F41.9 Anxiety disorder, unspecified; G89.18 Other acute postprocedural pain; J00 Acute nasopharyngitis [common cold]; K59.03 Drug induced constipation; T40.2X5A Adverse effect of other opioids, initial encounter; Y92.230 Patient room in hospital as the place of occurrence of the external cause
CPT/HCPCS: 73610; 80048; 80053; 82306; 83735; 84100; 84703; 85025; 93005; 97161; 97530; C1713; C9250; J0131; J0690; J1100; J1170; J1200; J1644; J2250; J2405; J2795; J3010; J3475